=== PATIENT | male | born 1970 | race Caucasian/White ===

== ENCOUNTER 2020-08-31 10:12 | Outpatient (REF) | payer MEDICARE, MEDICAID, SELFPAY ==
[2020-08-31 13:51] LABS: MANUAL DIFF FLAG NO
[2020-08-31 14:07] LABS: Basophils Percent Auto 0.5 % (0-2); Eosinophils Percent Auto 0.1 % (0-4); Hematocrit 42.4 % (42-52); Imm Gran Abs Auto 0.04 X10*3/uL (0.00-0.03); Imm Gran Pct Auto 0.5 % (0.0-0.4); Lymphocytes Absolute Auto 1.3 X10*3/uL (1.2-4.9); Lymphocytes Percent Auto 15.1 % (20-40); Mean Corpuscular Hemoglobin 29.6 pg (27.0-33.0); Mean Corpuscular Volume 89.6 fL (80-98); Mean Platelet Volume 9.5 fL (9.4-12.4); Monocytes Absolute Auto 0.8 X10*3/uL (0.1-1.2); Monocytes Percent Auto 9.6 % (2-11); Neutrophils Absolute Auto 6.5 X10*3/uL (2.0-8.3); Neutrophils Percent Auto 74.2 % (45-73); Platelet Count 337 X10*3/uL (160-400); Red Blood Count 4.73 X10*6/uL (4.60-5.80); Red Cell Distribution Width 12.9 % (11.0-16.0); White Blood Count 8.7 X10*3/uL (4.8-10.8)
[2020-08-31 14:34] LABS: Alanine Aminotransferase 35 U/L (0-40); Albumin Level 4.6 g/dL (3.5-5.0); Alkaline Phosphatase 93 U/L (39-117); Anion Gap 15 (12-20); Aspartate Amino Transferase 24 U/L (5-37); Bilirubin Total 0.4 mg/dL (0.0-1.0); Blood Urea Nitrogen 13 mg/dL (9-16); Calcium 8.6 mg/dL (8.4-10.2); Carbon Dioxide 27 mmol/L (22-29); Chloride 103 mmol/L (96-108); Cholesterol 167 mg/dL; Estimated Glomerular Filt Rate > 60; Glucose Random 104 mg/dL (60-115); HDL Cholesterol 32 mg/dL; LDL Cholesterol Calculated 97 mg/dl; Potassium 4.5 mmol/l (3.3-5.1); Sodium 140 mmol/L (135-145); Total Protein 7.2 g/dL (6.5-8.0); Triglycerides 190 mg/dL
[2020-08-31 14:57] LABS: Free T4 (Free Thyroxine) 0.89 ng/dL (0.71-1.85); Prostate Specific Antigen Scr 0.76 ng/mL (<0.05-4.0); Thyroid Stimulating Hormone 0.76 uIU/mL (0.32-4.0)
[2020-08-31 15:20] LABS: Folate 2.5 ng/mL (> or = 4.0); Vitamin B12 223 pg/mL (200-900)
== END 2020-08-31 10:13 | disposition home or self-care (01) ==
LOC: HO.10HDL 10:12
PROVIDERS: Visit Provider Internal Medicine
DX: K21.9 Gastro-esophageal reflux disease without esophagitis (principal); E78.00 Pure hypercholesterolemia, unspecified; Z12.5 Encounter for screening for malignant neoplasm of prostate
CPT/HCPCS: 36415; 80053; 80061; 82607; 82746; 84153; 84439; 84443; 85025

== ENCOUNTER 2021-07-29 09:53 | Outpatient (REF) | payer MEDICARE, MEDICAID, SELFPAY ==
[2021-07-29 10:14] LABS: MANUAL DIFF FLAG NO
[2021-07-29 10:21] LABS: Basophils Percent Auto 0.2 % (0-2); Eosinophils Absolute Auto 0.1 X10*3/uL (0.0-0.4); Eosinophils Percent Auto 1.4 % (0-4); Hematocrit 41.6 % (42.0-52.0); Hemoglobin 13.6 g/dl (14.0-18.0); Imm Gran Abs Auto 0.02 X10*3/uL (0.00-0.03); Imm Gran Pct Auto 0.2 % (0.0-0.4); Lymphocytes Absolute Auto 1.8 X10*3/uL (1.2-4.9); Lymphocytes Percent Auto 19.6 % (20-40); Mean Corpuscular HGB Conc 32.7 g/dl (31.0-36.0); Mean Corpuscular Hemoglobin 29.1 pg (27.0-33.0); Mean Corpuscular Volume 88.9 fL (80.0-98.0); Mean Platelet Volume 9.6 fL (9.4-12.4); Monocytes Absolute Auto 0.8 X10*3/uL (0.1-1.2); Monocytes Percent Auto 8.8 % (2-11); Neutrophils Absolute Auto 6.3 x10*3/uL (2.0-8.3); Neutrophils Percent Auto 69.8 % (45-73); Platelet Count 303 X10*3/uL (160-400); Red Blood Count 4.68 X10*6/uL (4.60-5.80); Red Cell Distribution Width 13.3 % (11.0-16.0)
[2021-07-29 10:48] LABS: Estimated Average Glucose 117 mg/dL; Hemoglobin A1c % 5.7 %
[2021-07-29 10:57] LABS: Alanine Aminotransferase 47 U/L (0-40); Albumin Level 4.5 g/dL (3.5-5.0); Alkaline Phosphatase 129 U/L (39-117); Anion Gap 13 (12-20); Aspartate Amino Transferase 30 U/L (5-37); Bilirubin Total 0.4 mg/dL (0.0-1.0); Blood Urea Nitrogen 14 mg/dL (9-16); Calcium 9.8 mg/dL (8.4-10.2); Carbon Dioxide 29 mmol/L (22-29); Chloride 105 mmol/L (96-108); Cholesterol 162 mg/dL; Estimated Glomerular Filt Rate > 60; Glucose Random 107 mg/dL (60-115); HDL Cholesterol 40 mg/dL; LDL Cholesterol Calculated 99 mg/dl; Potassium 4.5 mmol/L (3.3-5.1); Sodium 142 mmol/L (135-145); Total Protein 7.3 g/dL (6.5-8.0); Triglycerides 118 mg/dL
[2021-07-29 11:12] LABS: Free T4 (Free Thyroxine) 0.79 ng/dL (0.71-1.85); Thyroid Stimulating Hormone 0.57 uIU/mL (0.32-4.0)
[2021-07-29 11:44] LABS: Folate > 20.0 ng/mL (> or = 4.0); Vitamin B12 999 pg/mL (200-900)
== END 2021-07-29 09:54 | disposition home or self-care (01) ==
LOC: HO.10HDL 09:53
PROVIDERS: Visit Provider Internal Medicine
DX: E78.00 Pure hypercholesterolemia, unspecified (principal); E53.8 Deficiency of other specified B group vitamins
CPT/HCPCS: 36415; 80053; 80061; 82607; 82746; 83036; 84153; 84439; 84443; 85025

== ENCOUNTER 2021-09-06 10:21 | Outpatient (REF) | payer MEDICARE, MEDICAID, SELFPAY ==
[2021-09-06 13:48] LABS: MANUAL DIFF FLAG NO
[2021-09-06 13:52] LABS: Basophils Percent Auto 0.3 % (0-2); Eosinophils Absolute Auto 0.1 X10*3/uL (0.0-0.4); Hematocrit 42.7 % (42.0-52.0); Hemoglobin 13.6 g/dl (14.0-18.0); Imm Gran Abs Auto 0.03 X10*3/uL (0.00-0.03); Imm Gran Pct Auto 0.3 % (0.0-0.4); Lymphocytes Absolute Auto 1.4 X10*3/uL (1.2-4.9); Lymphocytes Percent Auto 16.5 % (20-40); Mean Corpuscular HGB Conc 31.9 g/dl (31.0-36.0); Monocytes Absolute Auto 0.8 X10*3/uL (0.1-1.2); Monocytes Percent Auto 8.8 % (2-11); Neutrophils Absolute Auto 6.3 x10*3/uL (2.0-8.3); Neutrophils Percent Auto 73.1 % (45-73); Platelet Count 321 X10*3/uL (160-400); Red Blood Count 4.69 X10*6/uL (4.60-5.80); Red Cell Distribution Width 13.3 % (11.0-16.0); White Blood Count 8.7 X10*3/uL (4.8-10.8)
[2021-09-06 14:37] LABS: Alanine Aminotransferase 47 U/L (0-40); Albumin Level 4.6 g/dL (3.5-5.0); Alkaline Phosphatase 130 U/L (39-117); Anion Gap 16 (12-20); Aspartate Amino Transferase 31 U/L (5-37); Bilirubin Total 0.3 mg/dL (0.0-1.0); Blood Urea Nitrogen 10 mg/dL (9-16); Calcium 9.5 mg/dL (8.4-10.2); Carbon Dioxide 28 mmol/L (22-29); Chloride 103 mmol/L (96-108); Estimated Glomerular Filt Rate > 60; Glucose Random 106 mg/dL (60-115); Potassium 4.5 mmol/L (3.3-5.1); Sodium 142 mmol/L (135-145); Total Protein 7.4 g/dL (6.5-8.0)
== END 2021-09-06 10:22 | disposition home or self-care (01) ==
LOC: HO.10HDL 10:21
PROVIDERS: Visit Provider Nurse Practitioner Acute Care
DX: R79.89 Other specified abnormal findings of blood chemistry (principal)
CPT/HCPCS: 36415; 80053; 85025

== ENCOUNTER 2021-09-17 07:44 | Outpatient (REF) | payer MEDICARE, MEDICAID, SELFPAY ==
--- NOTE | ~2021-09-17 | XR_ITS ---
EXAMINATION: XR HAND, RIGHT CLINICAL INFORMATION: Pain COMPARISON: None TECHNIQUE: PA, lateral, and oblique views of the right hand. FINDINGS: No fracture or dislocation. Alignment is anatomic. Joint spaces are maintained. The soft tissues are unremarkable. XR/XR hand RT min 3V IMPRESSION: Normal right hand.
== END 2021-09-17 07:45 | disposition home or self-care (01) ==
LOC: HO.HOSX 07:44
PROVIDERS: Visit Provider Physician Assistant
DX: M72.0 Palmar fascial fibromatosis [Dupuytren] (principal); F17.200 Nicotine dependence, unspecified, uncomplicated
CPT/HCPCS: 73130; 99202

== ENCOUNTER → 2021-10-09 13:45 | Outpatient (BNVA) | payer MEDICARE, MEDICAID, SELFPAY | PROVIDERS: PCP Internal Medicine; Visit Provider Orthopaedic Surgery | DX: M72.0 Palmar fascial fibromatosis [Dupuytren] (principal); J44.9 Chronic obstructive pulmonary disease, unspecified; E78.00 Pure hypercholesterolemia, unspecified; E66.01 Morbid (severe) obesity due to excess calories; F17.200 Nicotine dependence, unspecified, uncomplicated; F10.10 Alcohol abuse, uncomplicated; Z68.38 Body mass index [BMI] 38.0-38.9, adult; Z88.8 Allergy status to other drugs, medicaments and biological substances | CPT/HCPCS: 99212 ==

== ENCOUNTER 2022-08-15 08:08 | Outpatient (REF) | payer MEDICARE, MEDICAID, SELFPAY ==
[2022-08-15 10:30] LABS: MANUAL DIFF FLAG NO
[2022-08-15 10:34] LABS: Basophils Absolute Auto 0.1 X10*3/uL (0.0-0.2); Basophils Percent Auto 0.5 % (0-2); Eosinophils Absolute Auto 0.2 X10*3/uL (0.0-0.4); Eosinophils Percent Auto 1.6 % (0-4); Hematocrit 41.1 % (42.0-52.0); Hemoglobin 13.4 g/dl (14.0-18.0); Imm Gran Abs Auto 0.03 X10*3/uL (0.00-0.03); Imm Gran Pct Auto 0.3 % (0.0-0.4); Lymphocytes Absolute Auto 1.3 X10*3/uL (1.2-4.9); Lymphocytes Percent Auto 13.8 % (20-40); Mean Corpuscular HGB Conc 32.6 g/dl (31.0-36.0); Mean Corpuscular Volume 92.2 fL (80.0-98.0); Mean Platelet Volume 9.5 fL (9.4-12.4); Monocytes Absolute Auto 0.9 X10*3/uL (0.1-1.2); Monocytes Percent Auto 9.2 % (2-11); Neutrophils Percent Auto 74.6 % (45-73); Platelet Count 332 X10*3/uL (160-400); Red Blood Count 4.46 X10*6/uL (4.60-5.80); Red Cell Distribution Width 13.2 % (11.0-16.0); White Blood Count 9.4 X10*3/uL (4.8-10.8)
[2022-08-15 10:59] LABS: Estimated Average Glucose 114 mg/dL; Hemoglobin A1c % 5.6 %
[2022-08-15 11:27] LABS: Alanine Aminotransferase 35 U/L (0-40); Albumin Level 4.6 g/dL (3.5-5.0); Alkaline Phosphatase 135 U/L (39-117); Anion Gap 15 (12-20); Aspartate Amino Transferase 25 U/L (5-37); Bilirubin Total 0.4 mg/dL (0.0-1.0); Blood Urea Nitrogen 12 mg/dL (9-16); Calcium 9.4 mg/dL (8.4-10.2); Carbon Dioxide 30 mmol/L (22-29); Chloride 102 mmol/L (96-108); Cholesterol 177 mg/dL; Estimated Glomerular Filt Rate > 60; Glucose Random 117 mg/dL (60-115); HDL Cholesterol 38 mg/dL; LDL Cholesterol Calculated 106 mg/dl; Potassium 5.1 mmol/L (3.3-5.1); Sodium 142 mmol/L (135-145); Total Protein 7.2 g/dL (6.5-8.0); Triglycerides 167 mg/dL
[2022-08-15 11:32] LABS: Prostate Specific Antigen Scr 0.53 ng/mL (<0.05-4.0); Thyroid Stimulating Hormone 0.99 uIU/mL (0.32-4.0)
[2022-08-15 11:49] LABS: Folate 11.4 ng/mL (> or = 4.0); Vitamin B12 642 pg/mL (200-900)
== END 2022-08-15 08:09 | disposition home or self-care (01) ==
LOC: HO.10HDL 08:08
PROVIDERS: Visit Provider Internal Medicine
DX: E78.00 Pure hypercholesterolemia, unspecified (principal); Z12.5 Encounter for screening for malignant neoplasm of prostate
CPT/HCPCS: 36415; 80053; 80061; 82607; 82746; 83036; 84153; 84439; 84443; 85025

== ENCOUNTER 2022-08-29 15:53 | Outpatient (REF) | payer MEDICARE, MEDICAID, SELFPAY ==
--- NOTE | ~2022-08-29 | XR_ITS ---
EXAMINATION: XR FOOT, RIGHT CLINICAL INFORMATION: Pain. COMPARISON: None TECHNIQUE: AP, lateral, and oblique views of the right foot. FINDINGS: Bony alignment and mineralization are normal. No fracture, dislocation or right ankle joint effusion is seen. Boehler's angle is normal. There is a small plantar calcaneal spur. No focal soft tissue swelling, gas or foreign body is seen. XR/XR foot RT min 3V IMPRESSION: 1. No fracture, dislocation or right ankle joint effusion is seen. 2. There is a small plantar calcaneal spur.
== END 2022-08-29 15:54 | disposition home or self-care (01) ==
LOC: HO.XRAY 15:53
PROVIDERS: PCP Internal Medicine; Visit Provider Nurse Practitioner Family
DX: M79.671 Pain in right foot (principal)
CPT/HCPCS: 73630

== ENCOUNTER 2023-05-07 14:05 | Outpatient (AMB) | payer MEDICARE, MEDICAID, SELFPAY ==
--- NOTE | 2023-05-07 15:17 | A.OFFPC_ITS ---
Vital Signs 05/07/23 15:18 Height 5 ft 4 in Weight 227 lb 6 oz BMI 39.0 BP 124/68 Blood Pressure Location Lt brachial Respiration 12 Pulse 112 H Pulse Source Pulse Oximeter Pulse Oximetry (%) 97 Oxygen Delivery Method Room Air Intake Visit Reasons: HLD Rater Associate Required: No Accompanied by: Self / Same As Patient Allergies aripiprazole [From ABILIFY] Allergy (Unknown, Verified 05/07/23 15:24) MUSCLE TWITCHING haloperidol [From HALDOL] Allergy (Unknown, Verified 05/07/23 15:24) BACK PAIN Tobacco use date assessed: 05/07/23 Dental Screening Dental Screen Date: 05/07/23 Did you have a dental visit in the last 12 months?: No Did you have a dental problem in the last 6 months where you did not have access to dental care?: No Was dental information given to patient?: Yes HPI HLD HPI Details 52-year-old obese male smoker with schiz ophrenia GERD h ypercholesterolemia COPD coming in for follow-up. Last seen in 2020.. Patient did see the nurse practitioner in October 2022 for well visit. Patient was seen also for a foot pain x-ray done showing calcaneal spur. Patient had trigger finger 50 right hand seen Ortho diagnosis of Dupuytren's contracture patient was advised surgery in September last year had knee inflammation treated as infection. smoking still . R pinky finger dupuytrens- declined surgery [facility] Medical History Alcohol abuse Schizophrenia Obesity (BMI 30-39.9) PTSD (post-traumatic stress disorder) COPD (chronic obstructive pulmonary disease) Hypercholesterolemia GERD (gastroesophageal reflux disease) Tobacco abuse Surgical History No pertinent past surgical history Family History Father No problems noted. Mother Ovarian cancer Uterine cancer Maternal Grandfather Myocardial infarction Brother No problems noted. Sister No problems noted. Other Mental health disorder Substance use disorder Social History Housing: Apartment Alcohol intake: former Patient Tobacco Use Status: Current everyday Tobacco user Tobacco use type: Cigarette and Cigar Cigarette Packs Per Day: 2.5 Cigarettes Per Day: 50.0 Years Smoked: started 12 years old Packs Per Year: 0 Packs per year/per ci.00 e-Cigarette/Vaping Use: Never Used Second Hand Smoke Exposure: No service: No Current occupational status: unemployed Current occupation: rt handed Cognitive needs: No Hearing needs: No Vision needs: Yes Questionnaire Thrive Questionnaire Date Thrive assessed: 08/29/22 TYLER-7 AMB Questionnaire TYLER-7 Date TYLER - 7 assessed: 10/29/22 Source: Developed by Drs. Angelo Mendoza, Marlene Alexander, Kavon Jaeger and colleagues, with an educational ginna from [employer]. Physical exam (Primary Care) Vital Signs: Last Vital Signs Pulse 112 H 05/07/23 15:18 Resp 12 05/07/23 15:18 BP 124/68 05/07/23 15:18 Pulse Ox 97 05/07/23 15:18 Oxygen Delivery Method Room Air 05/07/23 15:18 BMI result Body Mass Index 39.0 Tobacco/Smoking Status: Tobacco use Status Tobacco use date assessed 05/07/23 05/07/23 15:25 Patient Tobacco Use Status Current everyday Tobacco 05/07/23 15:25 Tobacco use type Cigarette,Cigar 05/07/23 15:25 e-Cigarette/Vaping Use Never Used 05/07/23 15:25 Thrive Assessment: Date of Thrive Assessment Date Thrive assessed 08/29/22 05/07/23 15:25 Const General: alert and awake HENMT Head: Yes normocephalic Ears: external ears normal and TM's normal bilaterally Face and sinus: Yes normal facial exam Mouth: moist mucous membranes Throat: Yes tonsils normal Eyes Conjunctivae: conjunctivae normal Pupils: Equal, round and reactive pupils present and Pupil accommodation reflex normal Direct Ophthalmoscopy: normal light reflex Neck Neck: No lymphadenopathy Thyroid: Thyroid normal Chest Chest palpation & inspection: normal inspection of the chest Resp Effort & Inspection: audible wheezes Auscultation: no crackles, wheezes and lung sounds not diminished Cardio Rate: regular rate Rhythm: regular rhythm Peripheral pulses: radial pulses present and dorsalis pedis present GI Inspection: Yes normal to inspection Palpation (GI): no masses Auscultation: normal bowel sounds and normoactive bowel sounds Rectal Exam - Male: Yes deferred Skin General skin exam: no rashes or lesions noted Rashes: no rashes Neuro General: deep tendon reflexes 2+ bilaterally Cranial nerves: Yes Equal, round and reactive pupils present, Yes Midline tongue present and Yes Ability to bilaterally elevate shoulders present Cognition (Neuro): normal cognition Gait exam (Neuro): Normal gait present Motor exam (neuro): 5/5 motor strength present throughout Deep tendon reflexes (DTR's): Right brachioradialis reflex intensity grade: 2+, Left brachioradialis reflex intensity grade: 2+, Right patellar reflex intensity grade: 2+ and Left patellar reflex intensity grade: 2+ Extrem General: No edema Assessment and Plan Assessment & Plan (1) Obesity: Code(s): E66.9 - Obesity, unspecified Plan: Seeing the weight for better health. (2) Screening for colon cancer: Code(s): Z12.11 - Encounter for screening for malignant neoplasm of colon Plan: Reminded about Cologuard testing but patient declined (3) Schizophrenia: Code(s): F20.9 - Schizophrenia, unspecified Plan: Continue to follow-up with psychiatry and counseling. Patient is on bupropion (4) COPD (chronic obstructive pulmonary disease): Code(s): J44.9 - Chronic obstructive pulmonary disease, unspecified Qualifiers: COPD type: emphysema Emphysema type: unspecified Qualified Code(s): J43.9 - Emphysema, unspecified Plan: Patient has been strongly advised to stop smoking! (5) Hypercholesterolemia: Code(s): E78.00 - Pure hypercholesterolemia, unspecified Plan: Avoid fried foods, chicken skin, eggs, butter margarine, pastries and meat. Be it pork or beef they have a lot of cholesterol on simvastatin 10 mg once a day LDL goal of less than 130 and triglyceride of less than 150 (6) GERD (gastroesophageal reflux disease): Code(s): K21.9 - Gastro-esophageal reflux disease without esophagitis Qualifiers: Esophagitis presence: without esophagitis Qualified Code(s): K21.9 - Gastro-esophageal reflux disease without esophagitis Plan: Avoid the foods that causes that usually spicy foods, tomato products, juices, coffee, soda and foods that your sensitive to. After eating do not lie down, allow 3-4 hours before in lie down. And keep the head of bed above 30 degrees to avoid the acid from going up. Stop smoking ! (7) Tobacco abuse: Code(s): Z72.0 - Tobacco use Plan: Patient is strongly advised to stop smoking! (8) Dupuytren's contracture of right hand: Code(s): M72.0 - Palmar fascial fibromatosis [Dupuytren] (9) Vision changes: Code(s): H53.9 - Unspecified visual disturbance Plan: Patient is referred for eye exam (10) Anemia: Code(s): D64.9 - Anemia, unspecified Plan: Repeat blood work requested (11) Impaired fasting glucose: Code(s): R73.01 - Impaired fasting glucose Plan: Decrease the amount of carbohydrate intake, pasta, bread, rice and potatoes are all sugar and that is aside from all the sweet stuff, remember that fruits are good but they are Sweet also. (12) Colonoscopy refused: Code(s): Z53.20 - Procedure and treatment not carried out because of patient's decision for unspecified reasons Plan: declined cologuard and colon test Orders: Orders Thyroid Stimulating Hormone Today D64.9 - Anemia, unspecified Lipid Panel Today D64.9 - Anemia, unspecified, E78.00 - Pure hypercholesterolemia, unspecified Ferritin Today D64.9 - Anemia, unspecified IRON PROFILE Today D64.9 - Anemia, unspecified Reticulocyte Count Today D64.9 - Anemia, unspecified Complete Blood Count Auto Diff Today D64.9 - Anemia, unspecified Comprehensive Met. Panel Today D64.9 - Anemia, unspecified Free T4 (Free Thyroxine) Today D64.9 - Anemia, unspecified Prostate Specific Antigen Scr Today D64.9 - Anemia, unspecified Vitamin B12 and Folate Today D64.9 - Anemia, unspecified Referrals Ophthalmology Referral H53.9 - Unspecified visual disturbance Coding Level of Care Code Est Pt Level 4 (75870) Diagnoses Obesity E66.9 Screening for colon cancer Z12.11 Schizophrenia F20.9 Pulmonary emphysema, unspecified emphysema type J43.9 COPD type: emphysema Emphysema type: unspecified Hypercholesterolemia E78.00 Gastroesophageal reflux disease without esophagitis K21.9 Esophagitis presence: without esophagitis Tobacco abuse Z72.0 Dupuytren's contracture of right hand M72.0 Vision changes H53.9 Anemia D64.9 Impaired fasting glucose R73.01 Colonoscopy refused Z53.20
[2023-05-07 15:18] VITALS: BP 124/68; PULSE 112; RESP 12; O2SAT 97; BMI 39.0
== END 2023-05-07 16:19 | disposition home or self-care (01) ==
PROVIDERS: Visit Provider Internal Medicine
DX: J43.9 Emphysema, unspecified (principal); F20.9 Schizophrenia, unspecified; E66.9 Obesity, unspecified; Z68.39 Body mass index [BMI] 39.0-39.9, adult; E78.00 Pure hypercholesterolemia, unspecified; K21.9 Gastro-esophageal reflux disease without esophagitis; Z72.0 Tobacco use; M72.0 Palmar fascial fibromatosis [Dupuytren]; H53.9 Unspecified visual disturbance; D64.9 Anemia, unspecified; R73.01 Impaired fasting glucose; Z53.20 Procedure and treatment not carried out because of patient's decision for unspecified reasons
CPT/HCPCS: 99214

== ENCOUNTER 2023-10-16 07:52 | Outpatient (REF) | payer MEDICARE, MEDICAID, SELFPAY ==
[2023-10-16 11:49] LABS: MANUAL DIFF FLAG NO
[2023-10-16 12:01] LABS: Basophils Percent Auto 0.3 % (0-2); Eosinophils Absolute Auto 0.1 X10*3/uL (0.0-0.4); Eosinophils Percent Auto 0.9 % (0-4); Hematocrit 40.7 % (42.0-52.0); Hemoglobin 12.9 g/dl (14.0-18.0); Imm Gran Abs Auto 0.04 X10*3/uL (0.00-0.03); Imm Gran Pct Auto 0.4 % (0.0-0.4); Immature Retic Fraction 23.3 % (2.3-13.4); Lymphocytes Absolute Auto 1.4 X10*3/uL (1.2-4.9); Mean Corpuscular HGB Conc 31.7 g/dl (31.0-36.0); Mean Corpuscular Hemoglobin 28.5 pg (27.0-33.0); Mean Corpuscular Volume 89.8 fL (80.0-98.0); Mean Platelet Volume 9.5 fL (9.4-12.4); Monocytes Absolute Auto 0.8 X10*3/uL (0.1-1.2); Monocytes Percent Auto 8.7 % (2-11); Neutrophils Absolute Auto 6.9 x10*3/uL (2.0-8.3); Neutrophils Percent Auto 74.7 % (45-73); Platelet Count 314 X10*3/uL (160-400); Red Blood Count 4.53 X10*6/uL (4.60-5.80); Red Cell Distribution Width 13.4 % (11.0-16.0); Retic HGB Equivalent 31.8 pg (30.0-35.0); Reticulocyte Percent 2.2 % (0.5-1.8); Reticulocytes Absolute 0.101 X10*6/uL (0.026-0.095); White Blood Count 9.2 X10*3/uL (4.8-10.8)
[2023-10-16 13:09] LABS: Alanine Aminotransferase 32 U/L (0-40); Albumin Level 4.4 g/dL (3.5-5.0); Alkaline Phosphatase 141 U/L (39-117); Anion Gap 16 (12-20); Aspartate Amino Transferase 22 U/L (5-37); Bilirubin Total 0.4 mg/dL (0.0-1.0); Blood Urea Nitrogen 11 mg/dL (9-16); Carbon Dioxide 29 mmol/L (22-29); Chloride 103 mmol/L (96-108); Cholesterol 163 mg/dL (<200); Estimated Glomerular Filt Rate > 60; Ferritin 15 ng/mL (20-250); Free T4 (Free Thyroxine) 0.79 ng/dL (0.71-1.85); Glucose Random 115 mg/dL (60-115); HDL Cholesterol 31 mg/dL (>40); Iron 68 mcg/dL (45-160); LDL Cholesterol Calculated 91 mg/dL (<100); Percent Iron Saturation 18 % (15-50); Potassium 4.6 mmol/L (3.3-5.1); Sodium 143 mmol/L (135-145); Thyroid Stimulating Hormone 1.24 uIU/mL (0.32-4.0); Total Iron Binding Capacity 376 mcg/dL (228-428); Total Protein 7.3 g/dL (6.5-8.0); Triglycerides 207 mg/dL (<150); Unsaturated Iron Binding 308 ug/dL
[2023-10-16 13:28] LABS: Folate 5.1 ng/mL (> or = 4.0); Prostate Specific Antigen Scr 0.33 ng/mL (<0.05-4.0); Vitamin B12 387 pg/mL (200-900)
== END 2023-10-16 07:53 | disposition home or self-care (01) ==
LOC: HO.10HDL 07:52
PROVIDERS: Visit Provider Internal Medicine
DX: E78.00 Pure hypercholesterolemia, unspecified (principal); D64.9 Anemia, unspecified; Z12.5 Encounter for screening for malignant neoplasm of prostate
CPT/HCPCS: 36415; 80053; 80061; 82607; 82728; 82746; 83540; 84153; 84439; 84443; 85025; 85045

== ENCOUNTER 2024-02-15 12:07 | Outpatient (AMB) | payer MEDICARE, MEDICAID, SELFPAY ==
[2024-02-15 12:18] VITALS: BP 138/76; PULSE 83; O2SAT 98; BMI 39.3
--- NOTE | 2024-02-15 12:18 | AM.OFFVISMDC ---
Intake Vital Signs 02/15/24 12:18 Height 5 ft 4 in Weight 229 lb BMI 39.3 BP 138/76 Blood Pressure Location Lt brachial Position Sitting Pulse 83 Pulse Source Pulse Oximeter Pulse Oximetry (%) 98 Oxygen Delivery Method Room Air Intake Visit Reasons: SWV Allergies aripiprazole [From ABILIFY] Allergy (Unknown, Verified 02/15/24 12:18) MUSCLE TWITCHING haloperidol [From HALDOL] Allergy (Unknown, Verified 02/15/24 12:18) BACK PAIN Medication List - Last Reconciled 02/15/24 by Gutierrez Spain MD bupropion HCl XL 150 mg PO BID olanzapine 10 mg PO DAILY omeprazole 20 mg PO BID simvastatin 10 mg PO DAILY HPI SWV HPI Details 53-year-old obese male smoker with schizophrenia COPD hypercholesterolemia GERD impaired glucose tolerance chronic anemia coming in for annual well visit. Patient has refused colonoscopy. Patient was last seen in 04/29/2023. Blood work done in October showing iron deficiency with an elevated triglyceride. declined rectal exam , colon test, inhaler [facility] Medical History (Updated 02/15/24 @ 13:18 by Gutierrez Spain MD) Vision changes Cellulitis Prehypertension Smoker unmotivated to quit Right foot pain Finger pain, right Morbid obesity with BMI of 40.0-44.9, adult Obesity Anemia Alcohol abuse Schizophrenia Obesity (BMI 30-39.9) PTSD (post-traumatic stress disorder) COPD (chronic obstructive pulmonary disease) Hypercholesterolemia GERD (gastroesophageal reflux disease) Tobacco abuse Surgical History No pertinent past surgical history Family History Father No problems noted. Mother Ovarian cancer Uterine cancer Maternal Grandfather Myocardial infarction Brother No problems noted. Sister No problems noted. Other Mental health disorder Substance use disorder Social History Housing: Apartment Alcohol intake: former Patient Tobacco Use Status: Current everyday Tobacco user Tobacco use type: Cigarette and Cigar Cigarette Packs Per Day: 2.5 Cigarettes Per Day: 50.0 Years Smoked: started 12 years old e-Cigarette/Vaping Use: Never Used Second Hand Smoke Exposure: No service: No Current occupational status: unemployed Current occupation: rt handed Cognitive needs: No Hearing needs: No Vision needs: Yes Questionnaire Medicare Wellness Checkup What is your age?: 65-69 (18-64) What gender do you identify with?: male During the past 4 weeks, how much have you been bothered by emotional problems such as feeling anxious, depressed, irritable, sad or downhearted, and blue?: moderately During the past 4 weeks, has your physical & emotional health limited your social activities with family, friends, neighbors, or groups?: not at all During the past 4 weeks, how much bodily pain have you generally had?: mild pain During the past 4 weeks, was someone available to help you if you needed & wanted help?: yes, as much as I wanted During the past 4 weeks, what was the hardest physical activity you could do for at least 2 minutes?: heavy Can you get to places out of walking distance without help? (For eg., can you travel alone on buses, taxis or drive your car?): Yes Can you go shopping for groceries or clothes without someone's help?: Yes Can you prepare your own meals?: Yes Can you do your housework without help?: Yes Because of any health problems, do you need the help of another person with your personal care needs such as eating, bathing, dressing or getting around the house?: No Can you handle your own money without help?: Yes During the past 4 weeks, how would you rate your health in general?: excellent During the past 4 weeks how have things been going for you?: pretty well Are you having difficulties driving your car?: not applicable, I don't use a car Do you always fasten your seat belt when you are in a car?: yes, usually During past 4 weeks, have you been bothered by the following: never: Falling or dizzy when standing up, Sexual problems?, Trouble eating well?, Teeth or denture problems? and Problems using the telephone? and always: Tiredness or fatigue? Have you fallen 2 or more times in the past year?: No Are you afraid of falling?: No Are you a smoker?: yes, but I'm not ready to quit During the past 4 weeks, how many drinks of wine, beer, or other alcoholic beverages did you have?: no alcohol at all Do you exercise for about 20 minutes 3 or more times a week?: no, I usually do not exercise this much Have you been given information to help with the following?: yes: Keeping track of your medications? and no: Hazards in your house that might hurt you? How often do you have trouble taking medicines the way you have been told to take them?: I always take medicine as prescribed How confident are you that you can control & manage most of your health problems?: very confident What is your race?: White PHQ-9 Over the last 2 weeks, how often have you been bothered by any of the following problems? 1. Little interest or pleasure in doing things: not at all 2. Feeling down, depressed, or hopeless: not at all 3. Trouble falling or staying asleep, or sleeping too much: more than half the days 4. Feeling tired or having little energy: nearly every day 5. Poor appetite or overeating: not at all 6. Feeling bad about yourself - or that you are a failure or have let yourself or your family down: not at all 7. Trouble concentrating on things, such as reading the newspaper or watching television: not at all 8. Moving or speaking so slowly that other people could have noticed. Or the opposite - being so fidgety or restless that you have been moving around a lot more than usual: not at all 9. Thoughts that you would be better off or of hurting yourself in some way: not at all Total score: 5 Depression Screening Interpretation: Negative Depression Screening Done: Yes 51774 - PHQ-9 Billing: Yes Source: Developed by Drs. Angelo Mendoza, Marlene Alexander, Kavon Jaeger and colleagues, with an educational ginna from [employer]. Thrive Questionnaire Date Thrive assessed: 02/15/24 I am a: Patient What is your living situation today?: I have a steady place to live Within the past 12 months, did the food you bought not last and you didn't have the money to get more?: Never true Within the past 12 months, did you worry whether your food would run out before you got money to buy more?: Never true Do you have trouble paying for medicines?: No Do you have trouble getting transportation to medical appointments?: No Do you have trouble paying your heating and electricity bill?: No Do you have trouble taking care of your child, family member or friend?: No Do you have trouble with day-to-day activities such as bathing, preparing meals, shopping, managing finances, etc.?: No Are you currently unemployed and looking for a job?: No Are you interested in more education?: No Currently or been in a relationship where the following occur: No concerns reported THRIVE Score: 0 TYLER-7 AMB Questionnaire TYLER-7 Date TYLER - 7 assessed: 02/15/24 Feeling nervous, anxious, or on edge: 0 = Not at all Not being able to stop or control worryin = Not at all Worrying too much about different things: 0 = Not at all Trouble relaxin = Not at all Being so restless that it is hard to sit still: 0 = Not at all Becoming easily annoyed or irritable: 0 = Not at all Feeling afraid as if something awful might happen: 0 = Not at all Total TYLER-7 score (0-4 normal; 5-9 mild; 10-14 moderate; 15-21 severe): 0 Source: Developed by Drs. Angelo Mendoza, Marlene Alexander, Kavon Jaeger and colleagues, with an educational ginna from [employer]. Review of Systems Const Denies poor appetite and Denies weakness Eyes Denies no additional complaints ENT Reports Normal hearing present, Denies dizziness, Denies nasal congestion, Denies tinnitus and Denies sore throat Card Denies chest pain, Denies syncope, Denies rapid heart rate and Denies dyspnea Resp Denies cough and Denies dyspnea GI Denies change in stool character, Reports constipation, Denies diarrhea, Denies nausea and Denies vomiting Denies dysuria and Denies urinary frequency Neuro Reports Normal hearing present, Denies confusion, Denies dizziness, Denies syncope and Denies weakness Psych Denies confusion Physical Exam Vital Signs: Last Vital Signs Pulse 83 02/15/24 12:18 BP 138/76 02/15/24 12:18 Pulse Ox 98 02/15/24 12:18 Oxygen Delivery Method Room Air 02/15/24 12:18 BMI result Body Mass Index 39.3 Const General: No confusion Orientation/consciousness: No confusion HEENT Head: Yes normocephalic Ears: external ears normal and TM's normal bilaterally Face and sinus: Yes normal facial exam Mouth: moist mucous membranes Throat: Yes tonsils normal Eyes Conjunctivae: conjunctivae normal Pupils: Equal, round and reactive pupils present and Pupil accommodation reflex normal Direct Ophthalmoscopy: normal light reflex Neck Neck: No lymphadenopathy Thyroid: Thyroid normal Chest Chest palpation & inspection: normal inspection of the chest Resp Effort & Inspection: audible wheezes Auscultation: clear to auscultation bilaterally, no crackles, wheezes and lung sounds not diminished Cardio Rate: regular rate Rhythm: regular rhythm Peripheral pulses: radial pulses present and dorsalis pedis present GI Other: declined Palpation (GI): no masses Auscultation: normal bowel sounds and normoactive bowel sounds Rectal Exam - Male: Yes deferred Male General Exam: Yes normal external exam Skin General skin exam: no rashes or lesions noted Rashes: no rashes Neuro General: No confusion Cranial nerves: Yes Equal, round and reactive pupils present and Yes Normal hearing present Cognition (Neuro): normal cognition Gait exam (Neuro): Normal gait present Motor exam (neuro): 5/5 motor strength present throughout Deep tendon reflexes (DTR's): Right brachioradialis reflex intensity grade: 2+, Left brachioradialis reflex intensity grade: 2+, Right patellar reflex intensity grade: 2+ and Left patellar reflex intensity grade: 2+ Extrem General: No edema Assessment & Plan Assessment & Plan (1) Medicare annual wellness visit, subsequent: Code(s): Z00.00 - Encounter for general adult medical examination without abnormal findings Plan: Patient is advised to eat healthy, keep well hydrated, keep active and have adequate sleep. (2) Tobacco abuse: Code(s): Z72.0 - Tobacco use Plan: Patient is strongly advised to stop smoking! declined lung cancer screening (3) Hypercholesterolemia: Code(s): E78.00 - Pure hypercholesterolemia, unspecified Plan: Avoid fried foods, chicken skin, eggs, butter margarine, pastries and meat. Be it pork or beef they have a lot of cholesterol LDL goal of less than 130 and triglyceride of less than 150 on simvastatin 10 mg once a day (4) GERD (gastroesophageal reflux disease): Code(s): K21.9 - Gastro-esophageal reflux disease without esophagitis Qualifiers: Esophagitis presence: without esophagitis Qualified Code(s): K21.9 - Gastro-esophageal reflux disease without esophagitis Plan: Avoid the foods that causes that usually spicy foods, tomato products, juices, coffee, soda and foods that your sensitive to. After eating do not lie down, allow 3-4 hours before in lie down. And keep the head of bed above 30 degrees to avoid the acid from going up. (5) COPD (chronic obstructive pulmonary disease): Code(s): J44.9 - Chronic obstructive pulmonary disease, unspecified Qualifiers: COPD type: emphysema Emphysema type: unspecified Qualified Code(s): J43.9 - Emphysema, unspecified Plan: Patient is strongly advised to stop smoking.!!! Patient is declining inhalers despited wheezing (6) Obesity (BMI 30-39.9): Code(s): E66.9 - Obesity, unspecified Plan: Diet and exercise (7) Iron deficiency anemia: Code(s): D50.9 - Iron deficiency anemia, unspecified Qualifiers: Iron deficiency anemia type: inadequate dietary iron intake Qualified Code(s): D50.8 - Other iron deficiency anemias Plan: Patient declined colonoscopy (8) Schizophrenia: Code(s): F20.9 - Schizophrenia, unspecified Qualifiers: Schizophrenia type: disorganized schizophrenia Qualified Code(s): F20.1 - Disorganized schizophrenia Plan: Continue to follow-up with psychiatry and counseling (9) Dupuytren's contracture of right hand: Code(s): M72.0 - Palmar fascial fibromatosis [Dupuytren] Plan: Patient declined referral to orthopedics since was told that there is a chance of recurrence. (10) Vision changes: Code(s): H53.9 - Unspecified visual disturbance Plan: Referral to Ophthalmology done but the patient wanted Ophthalmology and [place] only. Orders: Orders Comprehensive Met. Panel 1 Year E78.00 - Pure hypercholesterolemia, unspecified Lipid Panel 1 Year E78.00 - Pure hypercholesterolemia, unspecified Complete Blood Count Auto Diff 1 Year E78.00 - Pure hypercholesterolemia, unspecified Free T4 (Free Thyroxine) 1 Year E78.00 - Pure hypercholesterolemia, unspecified Thyroid Stimulating Hormone 1 Year E78.00 - Pure hypercholesterolemia, unspecified Hemoglobin A1c 1 Year E78.00 - Pure hypercholesterolemia, unspecified Protein Electrophoresis, Serum 1 Year E78.00 - Pure hypercholesterolemia, unspecified, R79.89 - Other specified abnormal findings of blood chemistry Vitamin B12 and Folate 1 Year E78.00 - Pure hypercholesterolemia, unspecified Referrals Ophthalmology Referral H53.9 - Unspecified visual disturbance Medications: New ferrous sulfate (Feosol) 325 mg PO DAILY 90 tabs 1RF D50.8 - Other iron deficiency anemias ascorbic acid (vitamin C) 500 mg PO .QD 90 caps 1RF D50.8 - Other iron deficiency anemias Refilled simvastatin 10 mg PO DAILY 90 tabs 3RF E78.00 - Pure hypercholesterolemia, unspecified simvastatin 10 mg PO DAILY 90 tabs 3RF E78.00 - Pure hypercholesterolemia, unspecified omeprazole 20 mg PO BID 180 caps 3RF K21.9 - Gastro-esophageal reflux disease without esophagitis Quality Reporting (2019) Depression/Bipolar (159/160/161/177) PHQ-9: Total score: 5 Coding Level of Care Code Medicare Subsequent (G0439) Diagnoses Medicare annual wellness visit, subsequent Z00.00 Tobacco abuse Z72.0 Hypercholesterolemia E78.00 Gastroesophageal reflux disease without esophagitis K21.9 Esophagitis presence: without esophagitis Pulmonary emphysema, unspecified emphysema type J43.9 COPD type: emphysema Emphysema type: unspecified Obesity (BMI 30-39.9) E66.9 Iron deficiency anemia secondary to inadequate dietary iron intake D50.8 Iron deficiency anemia type: inadequate dietary iron intake 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
== END 2024-02-15 13:24 | disposition home or self-care (01) ==
PROVIDERS: PCP Internal Medicine; Visit Provider Internal Medicine
DX: Z00.00 Encounter for general adult medical examination without abnormal findings (principal); F17.210 Nicotine dependence, cigarettes, uncomplicated; E78.00 Pure hypercholesterolemia, unspecified; J43.9 Emphysema, unspecified; K21.9 Gastro-esophageal reflux disease without esophagitis; D50.8 Other iron deficiency anemias; M72.0 Palmar fascial fibromatosis [Dupuytren]; H53.9 Unspecified visual disturbance
CPT/HCPCS: G0439

== ENCOUNTER 2025-03-13 08:22 | Outpatient (REF) | payer MEDICARE, MEDICAID, SELFPAY ==
[2025-03-13 10:45] LABS: MANUAL DIFF FLAG NO
[2025-03-13 10:51] LABS: Hematocrit 42.9 % (42.0-52.0); Hemoglobin 14.4 g/dl (14.0-18.0); Imm Gran Abs Auto 0.02 X10*3/uL (0.00-0.03); Imm Gran Pct Auto 0.2 % (0.0-0.4); Lymphocytes Absolute Auto 1.1 X10*3/uL (1.2-4.9); Mean Corpuscular HGB Conc 33.6 g/dl (31.0-36.0); Mean Corpuscular Hemoglobin 30.3 pg (27.0-33.0); Mean Corpuscular Volume 90.1 fL (80.0-98.0); NRBC Abs Auto 0.000 X10*3/uL (0.0-0.012); NRBC Pct Auto 0.0 /100WBC (0.0-0.2); Platelet Count 261 X10*3/uL (160-400); Red Blood Count 4.76 X10*6/uL (4.60-5.80); White Blood Count 9.0 X10*3/uL (4.8-10.8)
[2025-03-13 11:20] LABS: Alanine Aminotransferase 34 U/L (0-40); Albumin Level 4.7 g/dL (3.5-5.0); Alkaline Phosphatase 114 U/L (39-117); Anion Gap 14 (12-20); Aspartate Amino Transferase 29 U/L (5-37); Blood Urea Nitrogen 13 mg/dL (9-16); Calcium 8.9 mg/dL (8.4-10.2); Carbon Dioxide 26 mmol/L (22-29); Chloride 105 mmol/L (96-108); Cholesterol 165 mg/dL (<200); Estimated Glomerular Filt Rate > 60; HDL Cholesterol 30 mg/dL (>40); Potassium 4.4 mmol/L (3.3-5.1); Sodium 141 mmol/L (135-145); Total Protein 7.3 g/dL (6.5-8.0); Triglycerides 179 mg/dL (<150)
[2025-03-13 11:28] LABS: Free T4 (Free Thyroxine) 0.87 ng/dL (0.71-1.85); Thyroid Stimulating Hormone 0.78 uIU/mL (0.32-4.0)
[2025-03-13 11:41] LABS: Folate 3.0 ng/mL (> or = 4.0); Vitamin B12 309 pg/mL (200-900)
[2025-03-13 15:39] LABS: Hemoglobin A1C 138.2789 umol/L; Total Hemoglobin (HGBA1C) 3797.9538 umol/L
[2025-03-14 21:53] LABS: Prot Elec - Albumin 4.2 g/dL (3.8-4.8); Prot Elec - Alpha1 0.4 g/dL (0.2-0.3); Prot Elec - Alpha2 0.7 g/dL (0.5-0.9); Prot Elec - Beta 1 0.5 g/dL (0.4-0.6); Prot Elec - Beta 2 0.3 g/dL (0.2-0.5); Prot Elec - Gamma 0.9 g/dL (0.8-1.7); Prot Elec - Total Protein 6.9 g/dL (6.1-8.1)
== END 2025-03-13 08:23 | disposition home or self-care (01) ==
LOC: HO.10HDL 08:22
PROVIDERS: Visit Provider Internal Medicine
DX: R79.89 Other specified abnormal findings of blood chemistry (principal); E78.00 Pure hypercholesterolemia, unspecified
CPT/HCPCS: 36415; 80053; 80061; 82607; 82746; 83036; 84165; 84439; 84443; 85025

== ENCOUNTER 2025-03-27 12:19 | Outpatient (AMB) | payer MEDICARE, MEDICAID, SELFPAY ==
[2025-03-27 12:42] VITALS: BP 130/88; PULSE 105; O2SAT 96; BMI 35.9
--- NOTE | 2025-03-27 12:42 | A.OFFVIS_ITS ---
Intake Vital Signs 03/27/25 12:42 Height 5 ft 4 in Weight 209 lb BMI 35.9 BP 130/88 Blood Pressure Location Lt brachial Position Sitting Pulse 105 H Pulse Source Pulse Oximeter Pulse Oximetry (%) 96 Oxygen Delivery Method Room Air Intake Visit Reasons: SA[facility] Intake Note: [facility] and was told is legally blind in eye. Patient has hip pain. Allergies aripiprazole (From ABILIFY) Allergy (Unknown, Verified 03/27/25 12:42) MUSCLE TWITCHING haloperidol (From HALDOL) Allergy (Unknown, Verified 03/27/25 12:42) BACK PAIN Medication List - Last Reconciled 03/27/25 by Gutierrez Spain MD ascorbic acid (vitamin C) 500 mg PO .QD bupropion HCl XL 150 mg PO BID ferrous sulfate (Feosol) 325 mg PO DAILY folic acid 1 mg PO DAILY olanzapine 10 mg PO DAILY olanzapine 15 mg PO BEDTIME omeprazole 20 mg PO BID simvastatin 10 mg PO DAILY HPI SAWV HPI Details [facility] [place] [facility] Kiana Roger. stopped soda, L hip pain 1.5 month. seen eye doctor r eye - legally blind- seen eye doctor. not ready for stopping smoking and was advised eye procedure but patient declined. declined pneumonia shot [facility] Medical History (Updated 03/27/25 @ 13:50 by Gutierrze Spain MD) Vision changes Cellulitis Prehypertension Smoker unmotivated to quit Right foot pain Finger pain, right Morbid obesity with BMI of 40.0-44.9, adult Obesity Anemia Alcohol abuse Schizophrenia Obesity (BMI 30-39.9) PTSD (post-traumatic stress disorder) COPD (chronic obstructive pulmonary disease) Hypercholesterolemia GERD (gastroesophageal reflux disease) Tobacco abuse Surgical History No pertinent past surgical history Family History Father No problems noted. Mother Ovarian cancer Uterine cancer Maternal Grandfather Myocardial infarction Brother No problems noted. Sister No problems noted. Other Mental health disorder Substance use disorder Social History Housing: Apartment Alcohol intake: former Patient Tobacco Use Status: Current everyday Tobacco user Tobacco use type: Cigarette and Cigar Cigarette Packs Per Day: 2.5 Cigarettes Per Day: 50.0 Years Smoked: started 12 years old e-Cigarette/Vaping Use: Never Used Second Hand Smoke Exposure: No service: No Current occupational status: unemployed Current occupation: rt handed Cognitive needs: No Hearing needs: No Vision needs: Yes Questionnaire Medicare Wellness Checkup What is your age?: 65-69 (18-64) What gender do you identify with?: male During the past 4 weeks, how much have you been bothered by emotional problems such as feeling anxious, depressed, irritable, sad or downhearted, and blue?: slightly During the past 4 weeks, has your physical & emotional health limited your social activities with family, friends, neighbors, or groups?: not at all During the past 4 weeks, how much bodily pain have you generally had?: very mild pain During the past 4 weeks, was someone available to help you if you needed & wanted help?: no, not at all During the past 4 weeks, what was the hardest physical activity you could do for at least 2 minutes?: moderate Can you get to places out of walking distance without help? (For eg., can you travel alone on buses, taxis or drive your car?): Yes Can you go shopping for groceries or clothes without someone's help?: Yes Can you prepare your own meals?: Yes Can you do your housework without help?: Yes Because of any health problems, do you need the help of another person with your personal care needs such as eating, bathing, dressing or getting around the house?: No Can you handle your own money without help?: Yes During the past 4 weeks, how would you rate your health in general?: very good During the past 4 weeks how have things been going for you?: pretty well Are you having difficulties driving your car?: not applicable, I don't use a car Do you always fasten your seat belt when you are in a car?: yes, usually During past 4 weeks, have you been bothered by the following: never: Falling or dizzy when standing up, Trouble eating well?, Teeth or denture problems? and Pro blems using the telephone?, sometimes: Sexual problems? and often: Tiredness or fatigue? Have you fallen 2 or more times in the past year?: No Are you afraid of falling?: No Are you a smoker?: yes, but I'm not ready to quit During the past 4 weeks, how many drinks of wine, beer, or other alcoholic beverages did you have?: no alcohol at all Do you exercise for about 20 minutes 3 or more times a week?: no, I usually do not exercise this much Have you been given information to help with the following?: yes: Keeping track of your medications? and no: Hazards in your house that might hurt you? How often do you have trouble taking medicines the way you have been told to take them?: I always take medicine as prescribed How confident are you that you can control & manage most of your health problems?: very confident What is your race?: White PHQ-9 Over the last 2 weeks, how often have you been bothered by any of the following problems? 1. Little interest or pleasure in doing things: not at all 2. Feeling down, depressed, or hopeless: not at all 3. Trouble falling or staying asleep, or sleeping too much: not at all 4. Feeling tired or having little energy: several days 5. Poor appetite or overeating: not at all 6. Feeling bad about yourself - or that you are a failure or have let yourself or your family down: not at all 7. Trouble concentrating on things, such as reading the newspaper or watching television: not at all 8. Moving or speaking so slowly that other people could have noticed. Or the opposite - being so fidgety or restless that you have been moving around a lot more than usual: not at all 9. Thoughts that you would be better off or of hurting yourself in some way: not at all Total score: 1 Depression Screening Interpretation: Positive Depression Screening Done: Yes Source: Developed by Drs. Angelo Mendoza, Marlene Alexander, Kavon Jaeger and colleagues, with an educational ginna from [employer]. Review of Systems Const Denies poor appetite and Denies weakness Eyes Denies no additional complaints ENT Reports Normal hearing present, Denies dizziness, Denies nasal congestion, Denies tinnitus and Denies sore throat Card Denies chest pain, Denies syncope, Denies rapid heart rate and Denies dyspnea Resp Denies cough and Denies dyspnea GI Denies change in stool character, Reports constipation, Denies diarrhea, Denies nausea and Denies vomiting Denies dysuria and Denies urinary frequency Neuro Reports Normal hearing present, Denies confusion, Denies dizziness, Denies syncope and Denies weakness Psych Denies confusion Physical Exam Vital Signs: Last Vital Signs Pulse 105 H 03/27/25 12:42 BP 130/88 03/27/25 12:42 Pulse Ox 96 03/27/25 12:42 Oxygen Delivery Method Room Air 03/27/25 12:42 BMI result Body Mass Index 35.9 Const General: No confusion Orientation/consciousness: No confusion HEENT Head: Yes normocephalic Ears: external ears normal and TM's normal bilaterally Face and sinus: Yes normal facial exam Mouth: moist mucous membranes Throat: Yes tonsils normal Eyes Conjunctivae: conjunctivae normal Pupils: Equal, round and reactive pupils present and Pupil accommodation reflex normal Direct Ophthalmoscopy: normal light reflex Neck Neck: No lymphadenopathy Thyroid: Thyroid normal Chest Chest palpation & inspection: normal inspection of the chest Resp Effort & Inspection: normal respiratory effort and no audible wheezes Auscultation: clear to auscultation bilaterally, no crackles, no wheezes and lung sounds not diminished Cardio Rate: regular rate Rhythm: regular rhythm Peripheral pulses: radial pulses present and dorsalis pedis present GI Other: declined rectal exam Palpation (GI): no masses Auscultation: normal bowel sounds and normoactive bowel sounds Rectal Exam - Male: Yes deferred Male General Exam: Yes normal external exam Skin General skin exam: no rashes or lesions noted Rashes: no rashes Neuro General: No confusion Cranial nerves: Yes Equal, round and reactive pupils present and Yes Normal hearing present Cognition (Neuro): normal cognition Gait exam (Neuro): Normal gait present Motor exam (neuro): 5/5 motor strength present throughout Deep tendon reflexes (DTR's): Right brachioradialis reflex intensity grade: 2+, Left brachioradialis reflex intensity grade: 2+, Right patellar reflex intensity grade: 2+ and Left patellar reflex intensity grade: 2+ Extrem General: No edema Immunizations Boostrix Tdap 2.5 Lf unit-8 mcg-5 Lf/0.5 mL intramuscular syringe Performing Provider: Gutierrez Spain MD Performing Location: [facility] Administered by: Lauren Ramos CMA on 03/27/25 13:56 Dose Route Admin Location Dispensed Lot Number Expiration Date NDC [employer] 0.5 mL IM Left Deltoid 0.5 mL [id number] 06/02/27 [id number] [email or web address] Total Dispensed Waste 0.5 mL 0 % VIS Given Date VIS Provided VIS Publication Date 03/27/25 Single Vaccine 21 Eligibility Eligibility Date Funding Source Not [facility] Eligible 03/27/25 Private Assessment & Plan Assessment & Plan (1) Annual wellness visit: Code(s): Z00.00 - Encounter for general adult medical examination without abnormal findings Plan: Patient is advised to eat healthy, keep well hydrated, keep active and have adequate sleep. (2) Impaired fasting glucose: Code(s): R73.01 - Impaired fasting glucose Plan: Decrease the amount of carbohydrate intake, pasta, bread, rice and potatoes are all sugar and that is aside from all the sweet stuff, remember that fruits are good but they are Sweet also. (3) Obesity (BMI 30-39.9): Code(s): E66.9 - Obesity, unspecified Plan: Diet and exercise (4) Hypercholesterolemia: Code(s): E78.00 - Pure hypercholesterolemia, unspecified Plan: Avoid fried foods, chicken skin, eggs, butter margarine, pastries and meat. Be it pork or beef they have a lot of cholesterol LDL goal of less than 130 and triglyceride of less than 150 patient is on simvastatin 10 mg once a day (5) GERD (gastroesophageal reflux disease): Code(s): K21.9 - Gastro-esophageal reflux disease without esophagitis Qualifiers: Esophagitis presence: without esophagitis Qualified Code(s): K21.9 - Gastro-esophageal reflux disease without esophagitis Plan: Avoid the foods that causes that usually spicy foods, tomato products, juices, coffee, soda and foods that your sensitive to. After eating do not lie down, allow 3-4 hours before in lie down. And keep the head of bed above 30 degrees to avoid the acid from going up. (6) Colonoscopy refused: Code(s): Z53.20 - Procedure and treatment not carried out because of patient's decision for unspecified reasons (7) Iron deficiency anemia: Code(s): D50.9 - Iron deficiency anemia, unspecified Qualifiers: Iron deficiency anemia type: inadequate dietary iron intake Qualified Code(s): D50.8 - Other iron deficiency anemias Plan: Continuing to monitor (8) COPD (chronic obstructive pulmonary disease): Code(s): J44.9 - Chronic obstructive pulmonary disease, unspecified Qualifiers: COPD type: emphysema Emphysema type: unspecified Qualified Code(s): J43.9 - Emphysema, unspecified Plan: Patient is strongly advised to stop smoking! (9) Tobacco abuse: Code(s): Z72.0 - Tobacco use Plan: Patient is strongly advised to stop smoking (10) Schizophrenia: Code(s): F20.9 - Schizophrenia, unspecified Qualifiers: Schizophrenia type: disorganized schizophrenia Qualified Code(s): F20.1 - Disorganized schizophrenia Plan: Continue with present medication and counseling and therapy (11) Left hip pain: Code(s): M25.552 - Pain in left hip (12) Impacted cerumen of right ear: Code(s): H61.21 - Impacted cerumen, right ear Plan History of Present Illness The patient is a 54-year-old male presenting for an annual wellness visit. The patient has a history of obesity, with a recent weight loss of 20 pounds attributed to dietary changes, specifically the cessation of soda consumption. He has a history of smoking, consuming approximately two and a half packs per day, and has been advised to quit due to its impact on his health, including his vision. The patient has been diagnosed with Gastroesophageal Reflux Disease (GERD) and is currently on omeprazole twice daily for management. He also has hypercholesterolemia, managed with simvastatin 10 mg daily, and his LDL cholesterol is currently at 100 mg/dL. The patient has Chronic Obstructive Pulmonary Disease (COPD) and reports occasional wheezing, particularly at night. He denies any recent exacerbations or hospitalizations related to COPD. The patient has schizophrenia, managed with bupropion and olanzapine, and reports adherence to his medication regimen. He has experienced no new psychiatric symptoms or hospitalizations since his last visit. The patient reports a history of anemia and vitamin deficiencies, including low folic acid and vitamin B12 levels. He is currently taking iron supplements but has discontinued vitamin C due to cost concerns. 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 He has declined recommended eye injections due to apprehension about the procedure. The patient reports hip pain, suspected to be osteoarthritis, which occurs when rising from a seated position and improves with movement. He has been managing the pain with ibuprofen, ensuring to take it with food to prevent gastrointestinal discomfort. Health Maintenance - Preventative care: Annual wellness visit - Smoking cessation strongly advised due to its impact on health, including vision - Dietary changes: Cessation of soda consumption leading to weight loss - Vaccinations: Tetanus shot recommended and administered Social History - Substance Use: Smokes approximately two and a half packs of cigarettes per day, no alcohol or drug use reported - Diet: Recent cessation of soda consumption, leading to a 20-pound weight loss Review of Systems - General: Reports weight loss of 20 pounds - Respiratory: Reports occasional wheezing, denies dyspnea or chest pain - Musculoskeletal: Reports hip pain when rising from a seated position, denies other joint pain - Neurological: Reports legal blindness in right eye, denies dizziness or headaches - Gastrointestinal: Reports occasional upset stomach, denies nausea or vomiting Physical Exam General: Cooperative, healthy appearing, comfortable, no acute distress and well developed Orientation: Patient oriented x3 Limitations: Reports sharp pain in left hip when getting up from sitting posit ion, likely due to arthritis Head: Normal to inspection Ears: Hearing grossly normal bilaterally, but reports occasional piercing sound Nose: Normal external nose present Face and sinus: Normal facial exam Eyes: Legally blind in right eye, attributed to smoking Neck: Normal visual inspection and Yes full ROM Respiratory: Normal respiratory effort and able to speak in complete sentences. Clear to auscultation bilaterally, occasional wheezing noted Cardiovascular: Regular rate and rhythm. Normal S1 and S2 GI: Normal to inspection. Soft to palpation and nontender Skin: No rashes or lesions noted Neuro: Patient oriented x3 Extremities: Normal to inspection, except for reported hip pain likely due to arthritis Results - Labs: Normal blood count, normal electrolytes, normal renal function, elevated blood sugar, normal hemoglobin A1c, LDL cholesterol at 100 mg/dL, low folic acid level Plan The patient is advised to continue with his current medication regimen, including simvastatin for hypercholesterolemia and omeprazole for GERD. Smoking cessation is strongly recommended due to its impact on his respiratory health and vision, with counseling and support offered to assist in quitting. For his COPD, the patient is advised to monitor symptoms and report any exacerbations. He is encouraged to maintain his dietary changes, particularly the cessation of soda, which has contributed to weight loss. The patient is advised to continue taking iron supplements and to consider reintroducing vitamin C to aid absorption, despite cost concerns. Folic acid supplementation is recommended to address the deficiency noted in his lab results. For his hip pain, suspected to be osteoarthritis, an x-ray is recommended to confirm the diagnosis, and he is advised to continue using ibuprofen as needed, ensuring it is taken with food. The patient is also advised to follow up with his eye doctor regarding his vision concerns and to reconsider the recommended eye injections. Patient was informed and verbally consented to the use of an ambient scribe for clinic note documentation during this visit. Discussion Notes During the visit, I discussed the importance of smoking cessation with the patient, emphasizing its impact on his respiratory health and vision. We reviewed his current medication regimen, including simvastatin and omeprazole, and I advised him to continue these medications. I recommended an x-ray for his hip pain to confirm the suspected diagnosis of osteoarthritis and advised him to continue using ibuprofen as needed, ensuring it is taken with food. We also discussed the need for folic acid supplementation due to his deficiency and the potential benefits of reintroducing vitamin C to aid iron absorption. I encouraged the patient to follow up with his eye doctor regarding his vision concerns and to reconsider the recommended eye injections. Patient Instructions - Continue taking simvastatin and omeprazole as prescribed. - Strongly consider quitting smoking; seek support if needed. - Monitor COPD symptoms and report any changes. - Maintain dietary changes, especially avoiding soda. - Continue taking iron supplements; consider adding vitamin C. - Take folic acid supplements as recommended. - Follow up with an x-ray for hip pain and continue ibuprofen as needed. - Schedule a follow-up with your eye doctor and reconsider eye injections. Orders: Orders Complete Blood Count Auto Diff 1 Year R73.01 - Impaired fasting glucose Comprehensive Met. Panel 1 Year R73.01 - Impaired fasting glucose Free T4 (Free Thyroxine) 1 Year R73.01 - Impaired fasting glucose Hemoglobin A1c 1 Year R73.01 - Impaired fasting glucose Lipid Panel 1 Year E78.00 - Pure hypercholesterolemia, unspecified, R73.01 - Impaired fasting glucose Vitamin B12 and Folate 1 Year R73.01 - Impaired fasting glucose XR hip LT min 2V Today M25.552 - Pain in left hip Ferritin 1 Year R73.01 - Impaired fasting glucose Prostate Specific Antigen Scr 1 Year R73.01 - Impaired fasting glucose IRON PROFILE 1 Year R73.01 - Impaired fasting glucose Reticulocyte Count 1 Year R73.01 - Impaired fasting glucose Thyroid Stimulating Hormone 1 Year R73.01 - Impaired fasting glucose TDaP Immunization Today Z23 - Encounter for immunization Medications: Refilled omeprazole 20 mg PO BID 180 caps 3RF K21.9 - Gastro-esophageal reflux disease without esophagitis simvastatin 10 mg PO DAILY 90 tabs 3RF E78.00 - Pure hypercholesterolemia, unspecified Quality Reporting (2019) Depression/Bipolar (159/160/161/177) PHQ-9: Total score: 1 Coding Level of Care Code Medicare Subsequent (G0439) Diagnoses Annual wellness visit Z00.00 Impaired fasting glucose R73.01 Obesity (BMI 30-39.9) E66.9 Hypercholesterolemia E78.00 Gastroesophageal reflux disease without esophagitis K21.9 Esophagitis presence: without esophagitis Colonoscopy refused Z53.20 Iron deficiency anemia secondary to inadequate dietary iron intake D50.8 Iron deficiency anemia type: inadequate dietary iron intake Pulmonary emphysema, unspecified emphysema type J43.9 COPD type: emphysema Emphysema type: unspecified Tobacco abuse Z72.0 Disorganized schizophrenia F20.1 Schizophrenia type: disorganized schizophrenia Left hip pain M25.552 Impacted cerumen of right ear H61.21
== END 2025-03-27 14:04 | disposition home or self-care (01) ==
LOC: HO.HMCH 12:19
PROVIDERS: PCP Internal Medicine; Visit Provider Internal Medicine
DX: Z00.00 Encounter for general adult medical examination without abnormal findings (principal); J43.9 Emphysema, unspecified; F20.1 Disorganized schizophrenia; E66.9 Obesity, unspecified; Z68.35 Body mass index [BMI] 35.0-35.9, adult; R73.01 Impaired fasting glucose; E78.00 Pure hypercholesterolemia, unspecified; K21.9 Gastro-esophageal reflux disease without esophagitis; D50.8 Other iron deficiency anemias; M25.552 Pain in left hip; H61.21 Impacted cerumen, right ear; Z23 Encounter for immunization

== ENCOUNTER 2025-03-27 12:19 | Outpatient (REF) | payer MEDICARE, MEDICAID, SELFPAY ==
--- NOTE | ~2025-03-27 | XR_ITS ---
EXAMINATION: XR HIP, LEFT CLINICAL INFORMATION: M25.552 - Pain in left hip COMPARISON: None available. TECHNIQUE: AP and oblique views of the left hip. FINDINGS: No acute cortical disruption or malalignment. Mild asymmetric joint space narrowing. No lytic or blastic lesions. XR/XR hip LT min 2V IMPRESSION: Overall normal x-ray, left hip. Electronically signed by: Reymundo Murillo MD 03/27/2025 02:45 PM EDT
== END 2025-03-27 12:20 | disposition home or self-care (01) ==
LOC: HO.XRAY 12:19
PROVIDERS: PCP Internal Medicine; Visit Provider Internal Medicine
DX: Z00.00 Encounter for general adult medical examination without abnormal findings (principal); K21.9 Gastro-esophageal reflux disease without esophagitis; M25.552 Pain in left hip; R73.01 Impaired fasting glucose; E66.9 Obesity, unspecified; H61.21 Impacted cerumen, right ear; E78.00 Pure hypercholesterolemia, unspecified; D50.8 Other iron deficiency anemias; J43.9 Emphysema, unspecified; F20.1 Disorganized schizophrenia; F17.210 Nicotine dependence, cigarettes, uncomplicated; F17.290 Nicotine dependence, other tobacco product, uncomplicated; Z23 Encounter for immunization; Z79.02 Long term (current) use of antithrombotics/antiplatelets; Z79.899 Other long term (current) drug therapy; Z53.20 Procedure and treatment not carried out because of patient's decision for unspecified reasons; Z68.35 Body mass index [BMI] 35.0-35.9, adult
CPT/HCPCS: 73502; 90471; 90715

== ENCOUNTER → 2025-03-27 14:21 | Outpatient (BNV) | payer MEDICARE, MEDICAID, SELFPAY | PROVIDERS: PCP Internal Medicine; Visit Provider Radiology Diagnostic Radiology | DX: M25.552 Pain in left hip (principal) | CPT/HCPCS: 73502 ==